=== PATIENT | male | born 1980 | race Two or more races ===

== ENCOUNTER 2018-01-29 09:29 | Inpatient (IN) | payer OTHER ==
[~2018-01-29] VITALS: Ht 182.9 cm; Wt 94.3 kg
[2018-01-29] VITALS (11 sets, daily range): BP systolic 122–134; BP diastolic 68–91
[2018-01-29] MEDS ORDERED: NKM (10:09)
[2018-01-29] MEDS ORDERED: Zemuron 50mg/5ml Inj IV ONE (11:41)
[2018-01-29] MEDS ORDERED: Thrombin 5000 units spray kit TOPIC ONE (11:48)
[2018-01-29] MEDS ORDERED: EPINEPHrine 1mg/1ml Amp ONE (11:48)
[2018-01-29] MEDS ORDERED: Thrombin 5000 units TOPIC ONE ×2 (11:49→11:50)
[2018-01-29] MEDS ORDERED: Gelfoam Size TOPIC ONE (11:49)
[2018-01-29] MEDS ORDERED: Gelfoam Absorbable 1gm powder pkt TOPIC ONE (11:49)
[2018-01-29] MEDS ORDERED: Bupivacaine 0.5% Inj 30 ml vial INJ ONE (11:49)
[2018-01-29] MEDS ORDERED: Bacitracin 50000 Units Vial ONE (11:50)
[2018-01-29] MEDS ORDERED: LR 1000ml ONE (12:00)
[2018-01-29] MEDS ORDERED: Propofol 1,000mg/ 100ml btl IV ONE (12:00)
[2018-01-29] MEDS ORDERED: Lidocaine 1% MPF 10mg/ml 5ml ONE (12:00)
[2018-01-29] MEDS ORDERED: Sterile Water Irrig 1000ml IRRIG ONE (12:00)
[2018-01-29] MEDS ORDERED: NS Irrig 1000ml ONE (12:00)
[2018-01-29] MEDS ORDERED: fentaNYL 100 mcg/2 mL IV ONE (12:03)
[2018-01-29] MEDS ORDERED: Ketamine 500mg Inj ONE (12:04)
--- NOTE | 2018-01-29 12:23 | Pre-Procedure Note/Attestation ---
Pre-Procedure Note/Attestation Complete Prior to Procedure Planned Procedure: right Procedure Narrative: C5-7 disc arthroplasty Indications for Procedure Pre-Operative Diagnosis: C5-7 stenosis Attestation I attest that I discussed the nature of the procedure; its benefits; risks and complications; and alternatives (and the risks and benefits of such alternatives ), prior to the procedure, with the patient (or the patient's legal airline security representative). I attest that, if there was a reasonable possibility of needing a blood transfusion, the patient (or the patient's legal airline security representative) was given the [facility] standardized written summary, pursuant to the [place] Blood Safety Act ([place] Health and Safety Code # 1645, as amended). I attest that I re-evaluated the patient just prior to the surgery and that there has been no change in the patient's H&P, except as documented below: Praveen Riley Jan 29, 2018 12:23
--- NOTE | 2018-01-29 13:25 | Anethesia Preoperative Eval ---
Anesthesia Pre-op PMH/ROS General Date of Evaluation: Jan 29, 2018 Time of Evaluation: 11:30 Anesthesiologist: ASA Score: ASA 2 Mallampati Score Class I : Soft palate, uvula, fauces, pillars visible Class II: Soft palate, uvula, fauces visible Class III: Soft palate, base of uvula visible Class IV: Only hard plate visible Mallampati Classification: Class II Surgeon: vicki Diagnosis: neck pain Surgical Procedure: C5-7 disc arthroplasty Allergies: Coded Allergies: HALOPERIDOL (Verified Adverse Reaction, Severe, 01/29/18) LOCK JAW OLANZAPINE (Verified Adverse Reaction, Severe, 01/29/18) RESTLESS LEG SYNDROME QUETIAPINE (Verified Adverse Reaction, Severe, 01/29/18) RESTLESS LEG SYNDROME RISPERIDONE (Verified Adverse Reaction, Severe, 01/29/18) RESTLESS LEG SYNDROME Past Medical History Cardiovascular: Denies: HTN, CAD, [place], valve dz, arrhythmia, other Pulmonary: Denies: asthma, COPD, HALINA, other Gastrointestinal/Genitourinary: Denies: GERD, CRI, ESRD, other Neurologic/Psychiatric: 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 Exam Physician Exam Last Vital Signs Date Time Temp Pulse Resp B/P (MAP) Pulse Ox O2 Delivery O2 Flow Rate FiO2 01/29/18 10:10 Room Air 01/29/18 10:02 98.5 83 18 127/73 (91) 99 98.5 Constitutional: other - neck pain Cardiovascular: RRR Respiratory: CTA Gastrointestinal: S/NT/ND Airway Exam Mallampati Score: Class II MO: full ROM: full Teeth: broken Dentures: no upper, no lower Anesthesia Pre-op A/P Risk Assessment & Plan Assessment: asa 2 Plan: ETGA Status Change Before Surgery: No Pre-Antibiotics Drug: ancef 2 grams Given Within 1 Hr of Incision: Yes Time Given: 12:30 Kimberly Nunez MD Jan 29, 2018 13:25
[2018-01-29] MEDS ORDERED: LR 1000ml 1,000 ML IVLG SCH (13:26)
--- NOTE | 2018-01-29 13:29 | Immediate Post-Op Evaluation ---
Immediate Post-Op Evalulation Immediate Post-Op Evalulation Procedure: C5-7 disc arthroplasty Date of Evaluation: Jan 29, 2018 Time of Evaluation: 15:16 IV Fluids: LR 900ml Blood Products: 0 Estimated Blood Loss: 30ml Urinary Output: 400ml Blood Pressure Systolic: 137 Blood Pressure Diastolic: 90 Pulse Rate: 87 Respiratory Rate: 14 O2 Sat by Pulse Oximetry: 100 Temperature (Fahrenheit): 97.8 Pain Score (1-10): 0 Nausea: No Vomiting: No Complications none Patient Status: awake, none Hydration Status: adequate Drug: ancef 2 grams Given Within 1 Hr of Incision: Yes Time Given: 12:30 Kimberly Nunez MD Jan 29, 2018 13:29
[2018-01-29] MEDS ORDERED: Hydromorphone 0.5mg/0.5ml inj IVP PRN (13:30)
[2018-01-29] MEDS ORDERED: Acetaminophen (Non formulary) 100 ML IV ONE (13:30)
[2018-01-29] MEDS ORDERED: Labetalol 5mg/ml 20ml vial IV PRN (13:30)
[2018-01-29] MEDS ORDERED: fentaNYL 100 mcg/2 mL IV PRN (13:30)
[2018-01-29] MEDS ORDERED: DiphenhydrAMINE 50mg/ml Inj IVP PRN (13:30)
[2018-01-29] MEDS ORDERED: Dexamethasone 4mg/ml vial ONE (13:34)
[2018-01-29] MEDS ORDERED: Vancomycin 1gm inj IVPB ONE (14:46)
[2018-01-29] MEDS ORDERED: Chloraseptic Spray 20mL Bottle ORAL PRN (15:00)
[2018-01-29] MEDS ORDERED: Norco 5mg/325mg tab ORAL PRN (15:00)
--- NOTE | 2018-01-29 15:14 | Brief Operative Note ---
Immediate Post Operative Note Operative Note Chief Complaint: Neck pain with cervical radiculopathy Pre-op Diagnosis: C5-7 stenosis Procedure: C5-7 disc arthroplasty Post-op Diagnosis: same as pre-op Surgeon: Dr Riley Anesthesiologist: Dr Nunez Anesthesia: general Specimen: yes - C5-7 disc Complications: none Condition: stable Fluids: NA Estimated Blood Loss: volume - 40 ml Drains: none Implant(s) used?: Yes - LDR Mobi-C artificial disc Praveen Riley Jan 29, 2018 15:14
--- NOTE | 2018-01-29 15:32 | 48 Hour Post Anesthesia Eval ---
Post Anesthesia Evaluation Procedure: C5-7 disc arthroplasty Date of Evaluation: Jan 29, 2018 Time of Evaluation: 17:30 Blood Pressure Systolic: 128 0: 68 Pulse Rate: 79 Respiratory Rate: 20 Temperature (Fahrenheit): 97.8 O2 Sat by Pulse Oximetry: 99 Airway: patent Nausea: No Vomiting: No Pain Intensity: 0 Hydration Status: adequate Mental Status/LOC: patient returned to baseline Post-Anesthesia Complications: none Follow-up care needed: N/A Kimberly Nunez MD Jan 29, 2018 15:32
--- NOTE | 2018-01-29 15:58 | Diagnostic Imaging Report ---
Indication: Intraoperative imaging; neck pain. Findings: Fluoroscopic imaging obtained intraoperatively. Fluoroscopic time: 10.3 seconds Number fluoroscopic images: 6. C5-6 C6-7 disc replacement noted multiple images. This was initially preceded by localization films obtained fluoroscopically. Endotracheal tube noted. IMPRESSION: Intraoperative imaging
--- NOTE | 2018-01-29 17:09 | General Progress Note ---
Assessment/Plan Status Narrative s/p cervical spine surgery doing better pain control monitor kristofer discussed wihtpatient at length pt ot dvt prophylaxis pain contol Subjective Date patient seen: Jan 29, 2018 Time patient seen: 17:04 Constitutional: Reports: no symptoms HEENT: Reports: no symptoms Cardiovascular: Reports: no symptoms - has pain, chest pain - has pain Allergies: Coded Allergies: HALOPERIDOL (Verified Adverse Reaction, Severe, 01/29/18) LOCK JAW OLANZAPINE (Verified Adverse Reaction, Severe, 01/29/18) RESTLESS LEG SYNDROME QUETIAPINE (Verified Adverse Reaction, Severe, 01/29/18) RESTLESS LEG SYNDROME RISPERIDONE (Verified Adverse Reaction, Severe, 01/29/18) RESTLESS LEG SYNDROME Objective Last 24 Hour Vital Signs Date Time Temp Pulse Resp B/P (MAP) Pulse Ox O2 Delivery O2 Flow Rate FiO2 01/29/18 16:38 Nasal Cannula 3.0 01/29/18 16:37 97.4 77 18 133/84 (100) 100 97.4 01/29/18 16:30 98.2 01/29/18 16:15 98.2 75 16 127/88 100 Nasal Cannula 3 98.2 01/29/18 16:00 84 15 122/84 100 Nasal Cannula 3 01/29/18 16:00 98.0 01/29/18 15:45 92 22 122/82 100 Nasal Cannula 3 01/29/18 15:35 89 21 126/89 100 Simple Mask 6 01/29/18 15:30 208.0 87 14 100 01/29/18 15:25 85 19 130/89 100 Simple Mask 6 01/29/18 15:20 83 15 131/90 100 Simple Mask 6 01/29/18 15:16 97.8 87 14 134/91 100 Simple Mask 6 97.8 01/29/18 10:10 Room Air 01/29/18 10:02 98.5 83 18 127/73 (91) 99 98.5 Height (Feet): 6 Height (Inches): 0.00 Weight (Pounds): 208 General Appearance: WD/WN Cardiovascular: normal rate, regular rhythm, no JVD Respiratory/Chest: lungs clear Abdomen: non tender, soft Extremities: other - no edema Edema: other - no edema James Zepeda MD Jan 29, 2018 17:09
[2018-01-29] MEDS: Methocarbamol 750mg tab ORAL SCH ×2 (17:18→20:43)
[2018-01-29] MEDS: Docusate 100mg cap ORAL SCH (17:18)
[2018-01-29] MEDS: Ketorolac 30mg Inj IM PRN (20:41)
[2018-01-29] MEDS: ceFAZolin sod 1 GM in D5W 55 ML IV SCH (20:43)
[2018-01-30] VITALS: BP 115/77
--- NOTE | 2018-01-30 01:00 | Operative Note - Dictated ---
DATE OF OPERATION: 01/29/2018 INDICATION FOR SURGERY: The patient is a 37-year-old gentleman who presented to the clinic with signs and symptoms of cervical stenosis consistent with neck pain and cervical radiculopathy. He had attempted and failed conservative measures. Surgical and nonsurgical options were discussed. The patient requested surgical intervention. RISKS AND BENEFITS DISCUSSION: The patient was apprised about objectives, benefits, risks and potential complications of the procedure including, but not limited to, worsening of current status, the possible need for further procedures, the risk of infection, headache, CSF leak, possible spinal cord injury resulting in paralysis, injury to major blood vessels, chronic hemorrhage, stroke, loss of language function, coma, and even . No assurance was given whether these symptoms will improve following the procedure. Informed consent was obtained and secured to the chart after the patient voiced understanding of these risks and decided to proceed with the operation. PREOPERATIVE DIAGNOSES: 1. C5-C6 and C6-C7 stenosis. 2. Left greater than right cervical radiculopathy. 3. Neck pain. POSTOPERATIVE DIAGNOSES: 1. C5-C6 and C6-C7 stenosis. 2. Left greater than right cervical radiculopathy. 3. Neck pain. PROCEDURE PERFORMED: 1. C5-C6 and C6-C7 anterior cervical diskectomy for decompression followed by application of artificial disk replacement. 2. Application of intervertebral pins for musculoskeletal traction. 3. Microscope. 4. Fluoroscope. 5. Neuromonitoring by outside service. SURGEON: Praveen Riley M.D. NAVIGATION TEACHER: None. ANESTHESIA: GETA. ANESTHESIOLOGIST: Kimberly Nunez M.D. ESTIMATED BLOOD LOSS: Approximately 40 mL. FINDINGS: There was a large herniated disk at C5-6 eccentric to the left compressing the exiting C6 nerve root. At the C5, C6, C7, there was more of a broad-based disk, also more eccentric to the left compressing the exiting C7 nerve root. There was a hkxd-nw-hbwigntl compression on the right foramina as well. SPECIMEN SENT: C5-C6 and C6-C7 disks. COMPLICATIONS: None. TECHNIQUE: The patient was transferred to the operating room. He was sedated and intubated by the Anesthesia team. Wood catheter was inserted. The patient was transferred to the operating table in a supine position. Preoperative antibiotics were given. Eyes were taped shut after ointment was applied to prevent corneal abrasion. Ryland Hugger was placed over the lower body to maintain control of core body temperature. All pressure points were carefully padded. Neuromonitoring team placed the needles in appropriate position and baselines were obtained. C-arm was brought in and incision was planned out using imaging. Skin was prepped and draped in the standard surgical fashion. A time-out was taken. A transverse neck incision was performed with a scalpel blade and dissection was carried down through the platysma muscle and down through the avascular plane up to the prevertebral fascia. The carotid artery was palpated and confirmed to be lateral. The prevertebral fascia was then opened and longus colli muscle was visualized and dissected laterally. Self-retaining retractors were then placed underneath the longus colli muscle. The C5-C6 and C6-C7 disks were then confirmed with fluoroscope. Microscope was brought in. At this point, diskectomy taken down of the posterior longitudinal ligament including foraminotomies were completed at C6-C7 first. As mentioned above, broad-based disk eccentric to the left was noted at this level and decompressed. Excellent decompression of the nerve root and spinal cord was confirmed. The C6-C7 interspace was then sized appropriately and artificial disk instrumentation from [facility] was placed into the C6-C7 disk space. X-ray fluoroscopy was then performed confirming good positioning of the device. Once done so, same process was repeated for the C5-C6, however, at this level there was a larger herniated disk noticed on the left side. Once both the devices were in, repeat x-ray fluoroscopy was performed to confirm excellent positioning. Afterwards, copious amounts of antibiotic irrigation was carried out. Excellent hemostasis was maintained throughout the entire case. It should also be noted that Sanford pins were placed into the vertebral bodies of C5-C6 and C6-C7 throughout the procedure to create musculoskeletal traction. These were removed once the devices were placed, and vancomycin powder was then placed into the wound and subcutaneous layers. The platysma layer and subcutaneous layers were then reapproximated. The skin was then closed with absorbable suture and skin glue was applied to the final layer. All needle count, sponge count, and instrument counts were correct at the end of the case x2. The neuromonitoring signals were stable throughout the entire case. The patient was then transferred to recovery in stable condition. He was examined after surgery and recovery and was able to move all extremities without difficulty. Praveen Riley MD DR: CHUCK JOB#: [id number] CC:
[2018-01-30 04:00] VITALS: BP 114/69
[2018-01-30] MEDS: ceFAZolin sod 1 GM in D5W 55 ML IV SCH ×2 (05:02→12:30)
[2018-01-30] MEDS: Ketorolac 30mg Inj IM PRN (05:02)
[2018-01-30 08:00] VITALS: BP 130/80
[2018-01-30] MEDS: Methocarbamol 750mg tab ORAL SCH ×2 (09:33→13:00)
[2018-01-30] MEDS: Docusate 100mg cap ORAL SCH (09:33)
[2018-01-30 12:00] VITALS: BP 130/78
[2018-01-30] MEDS ORDERED: Tubing IV Secondary IV ONE (13:29)
--- NOTE | 2018-01-31 09:37 | Discharge Summary ---
Discharge Summary Discharge Summary _ DATE OF ADMISSION: 01/29/2018 DATE OF DISCHARGE: 01/30/2018 BRIEF HOSPITAL COURSE: Patient is a 37-year-old gentleman, who presented with signs and symptoms of cervical stenosis consistent with neck pain and cervical radiculopathy. He had attempted and failed conservative measures. Surgical and nonsurgical options were discussed. Patient elected for surgical intervention. He was admitted and underwent C5-C6 and C6-C7 anterior cervical discectomy for decompression followed by application of artificial disc replacement. Findings showed large herniated disc at C5-C6 eccentric to the left compressing the existing C6 nerve root. At the C5, C6, C7 there was more of a broad-based disc , also more eccentric to the left compressing the exiting C7 nerve root. There was afet-bg-gjekboic compression on the right foramina. He tolerated procedure well. Postoperatively, he was given pain management. He was placed on SCDs for DVT prophylaxis. He was given incentive spirometry. Diet was advanced. He underwent physical and occupational therapy. He was ambulating well, and tolerating diet well with good pain control. He was then cleared for discharge. FINAL DIAGNOSES: Neck pain due to C5-C6 and C6-C7 stenosis, left greater than right cervical radiculopathy Status post C5-C6 and C6-C7 anterior cervical discectomy with decompression and application of artificial disc replacement (refer to operative report) DISPOSITION: Patient was discharged home. DISCHARGE INSTRUCTIONS: Follow up in 10-14 days. I have been assigned to dictate discharge summary on this account, and I was not involved in the patient's management. Eve oV NP Jan 31, 2018 09:37
== END 2018-01-30 13:30 | disposition home or self-care (01) | DRG 518 ==
LOC: SDSOVERFLO 09:29 → 3E 16:19
PROC: 0RR30JZ Replacement of Cervical Vertebral Disc with Synthetic Substitute, Open Approach (ICD-10-PCS; principal; 2018-01-29 12:00)
DX: M50.122 Cervical disc disorder at C5-C6 level with radiculopathy (principal); M48.02 Spinal stenosis, cervical region; Z88.8 Allergy status to other drugs, medicaments and biological substances; F41.8 Other specified anxiety disorders
CPT/HCPCS: 36415; 72040; 76001; 86850; 86900; 86901; 87081; 94003; 94150; 94760; J2405